=== PATIENT | male | born 1975 | race Caucasian/White ===

== ENCOUNTER 2018-11-11 20:17 | Emergency (ER) | payer OTHER ==
[~2018-11-11] VITALS: Ht 175.3 cm; Wt 81.6 kg
[2018-11-11 20:41] VITALS: BP 128/75
[2018-11-11] MEDS ORDERED: SULF1TAB24 PO (21:52)
--- NOTE | 2018-11-11 21:55 | PHYS DOC ---
Adult General Chief Complaint Chief Complaint lace HPI HPI 42 years old gentleman presented emergency department with laceration to the left index is able to move it and old direction and against resistance there is no active bleeding Review of Systems Review of Systems Constitutional: Denies fever or chills [] Eyes: Denies change in visual acuity, redness, or eye pain [] HENT: Denies nasal congestion or sore throat [] Respiratory: Denies cough or shortness of breath [] Cardiovascular: No additional information not addressed in HPI [] GI: Denies abdominal pain, nausea, vomiting, bloody stools or diarrhea [] : Denies dysuria or hematuria [] Musculoskeletal: Denies back pain or joint pain [] Integument: Denies rash o Neurologic: Denies headache, focal weakness or sensory changes [] Endocrine: Denies polyuria or polydipsia [] All other systems were reviewed and found to be within normal limits, except as documented in this note. Allergies Allergies Allergies Coded Allergies Type Severity Reaction Last Updated Verified No Known Drug Allergies 11/11/18 No Physical Exam Physical Exam Constitutional: Well developed, well nourished, no acute distress, non-toxic appearance. [] HENT: Normocephalic, atraumatic, bilateral external ears normal, oropharynx moist, no oral exudates, nose normal. [] Eyes: PERRLA, EOMI, conjunctiva normal, no discharge. [] Neck: Normal range of motion, no tenderness, supple, no stridor. [] Cardiovascular:Heart rate regular rhythm, no murmur [] Lungs & Thorax: Bilateral breath sounds clear to auscultation [] Abdomen: Bowel sounds normal, soft, no tenderness, no masses, no pulsatile masses. [] Skin: 3 cm laceration to the left index no restriction of movement against resistance, Back: No tenderness, no CVA tenderness. [] Extremities: No tenderness, no cyanosis, no clubbing, ROM intact, no edema. [] Neurologic: Alert and oriented X 3, normal motor function, normal sensory function, no focal deficits noted. [] Psychologic: Affect normal, judgement normal, mood normal. [] Current Patient Data Vital Signs Vital Signs Date Time Temp Pulse Resp B/P (MAP) Pulse Ox O2 Delivery O2 Flow Rate FiO2 11/11/18 20:41 98.5 70 18 96 Room Air EKG EKG [] Radiology/Procedures Radiology/Procedures [] Course & Med Decision Making Course & Med Decision Making Wound irrigated with normal saline, Marcaine 0.5% used for digital block, 5-0 nylon used, 8 sutures [] Final Impression Final Impression [] Problems: (1) Finger laceration Qualifiers: Qualified Codes: S61.211A - Laceration without foreign body of left index finger without damage to nail, initial encounter Dragon Disclaimer Dragon Disclaimer This electronic medical record was generated, in whole or in part, using a voice recognition dictation system. KEENAN DE LA GARZA MD Nov 11, 2018 21:55
[2018-11-11] MEDS ORDERED: TETANUS AND DIPHTHERIA TOX/PF 0.5 ML VIAL. VAX IM ONE (22:30)
== END 2018-11-11 22:01 | disposition home or self-care (01) ==
LOC: ER 20:17
DX: S61.211A Laceration without foreign body of left index finger without damage to nail, initial encounter (principal); X58.XXXA Exposure to other specified factors, initial encounter; Y93.89 Activity, other specified; Y92.89 Other specified places as the place of occurrence of the external cause; Y99.8 Other external cause status
CPT/HCPCS: 12002; 99283

== ENCOUNTER 2018-11-21 19:54 | Emergency (ER) | payer OTHER ==
[~2018-11-21] VITALS: Ht 175.3 cm; Wt 81.6 kg
[~2018-11-21 19:54] MED LIST: SULF1TAB24 PO
[2018-11-21 20:15] VITALS: BP 133/79
[2018-11-21] MEDS ORDERED: CEPH-264 PO (20:43)
--- NOTE | 2018-11-21 21:10 | ED.ADGEN ---
Past History Past Medical History: High Cholesterol, Hypertension, Other Past Surgical History: No Surgical History Alcohol Use: Rarely Drug Use: None Adult General HPI HPI Patient is a 42 year old male who presents for suture removal. Patient had sutures placed one week earlier in the left index finger after sustaining a crush injury with a hammer. Today, he presents to the ER for removal. He complains of a small amount of drainage but overall his wound has been reportedly healing well. No fever or chills. Review of Systems Review of Systems Constitutional: Denies fever or chills Musculoskeletal: joint pain Integument: Denies rash or skin lesions Neurologic: Denies All other systems were reviewed and found to be within normal limits, except as documented in this note. Allergies Allergies Allergies Coded Allergies Type Severity Reaction Last Updated Verified No Known Drug Allergies 11/11/18 No Physical Exam Physical Exam Constitutional: Well developed, well nourished Neck: Normal range of motion Skin: Warm, dry, no erythema, no rash Extremities: Well-healing laceration with sutures in place and wound edges are well approximated. The incision is on the left index finger past the PIP joint. No signs of infection. Neurologic: Alert and oriented X 3 Psychologic: Affect normal EKG EKG [] Radiology/Procedures Radiology/Procedures [] Course & Med Decision Making Course & Med Decision Making Pertinent Labs and Imaging studies reviewed. (See chart for details) Patient is evaluated for a simple suture removal. After removing some of the stitches, there was a scant amount of drainage from one of the stitch sites. This likely represents a stitch reaction. The patient was given some Keflex to take at home but only if he developed any worsening redness or drainage in the next 48 hours. All of his questions were answered prior to discharge home. Final Impression Final Impression Suture Removal Dragon Disclaimer Dragon Disclaimer This electronic medical record was generated, in whole or in part, using a voice recognition dictation system. CHRISTOPHER SAVAGE DO Nov 21, 2018 21:10
== END 2018-11-21 20:45 | disposition home or self-care (01) ==
LOC: ER 19:54
DX: S67.191D Crushing injury of left index finger, subsequent encounter (principal); E78.00 Pure hypercholesterolemia, unspecified; I10 Essential (primary) hypertension; W20.8XXD Other cause of strike by thrown, projected or falling object, subsequent encounter
CPT/HCPCS: 99283